=== PATIENT | male | born 1945 | race Caucasian/White ===

== ENCOUNTER → 2017-09-02 10:55 | Outpatient (CLI) | payer MEDICARE, OTHER ==
[2014-11-19 12:00] VITALS: BMI 28.0
[~2017-09-02 10:55] MED LIST: ACETAMINOPHEN500 M1 PO; DIOVAN HCT 160/1 TA1 PO; FOLATE0.4 MG; IMURAN50 MG PO; IPRAT-ALBUT 0.5-3 ML UPD; KLONOPIN1 MG PO; LEVAQUIN500 MG PO; LIDOCAINE-PRILOC5 GM TP; LOW DOSE ASPIRI81 M1 PO; LYRICA100 MG PO; PAMELOR10 MG PO; PLAVIX75 MG PO; PREDNISONE10 MG PO; PROSCAR5 MG PO; ROBAXIN500 MG PO; SAW PALMETTO450 MG PO; TOPROL XL100 MG PO; ULTRAM50 MG PO; VITAMIN B-122500 MCG PO; VITAMIN D5000 UNIT PO; ZANTAC150 MG PO; ZYRTEC10 MG PO
== END | disposition home or self-care (01) ==
LOC: D.CT 10:55
DX: I71.4 Abdominal aortic aneurysm, without rupture (principal)

== ENCOUNTER 2017-09-17 17:37 | Inpatient (IN) | payer MEDICARE, OTHER ==
[~2017-09-17] VITALS: Ht 193 cm; Wt 109.7 kg
[2017-09-17 18:27] LABS: BASOPHILS 0.1 % (0-2); EOSINOPHILS 0.1 % (0-7); HEMATOCRIT 44.8 % (42.0-54.0); HEMOGLOBIN 15.2 g/dL (13.5-17.5); IMMATURE GRANULOCYTES 0.6 % (0-5); LYMPHOCYTES 7.9 % (15-50); MCH 32.1 pg (26.0-34.0); MCHC 33.9 g/dL (31.0-37.0); MCV 94.7 fL (80.0-100.0); MEAN PLATELET VOLUME 11.1 fL (7.4-10.4); MONOCYTES 4.3 % (2-11); RBC 4.73 10x6/uL (4.20-6.10); RDW 14.8 % (11.5-14.5); WBC 8.1 10x3/uL (4.8-10.8)
[2017-09-17 18:29] LABS: PLATELET COUNT 124 10x3/uL (130-400)
[2017-09-17 18:57] LABS: ALBUMIN 3.6 g/dL (3.4-5.0); ALKALINE PHOSPHATASE 47 U/L (46-116); ALT (SGPT) 25 U/L (10-68); CALCIUM 9.8 mg/dL (8.5-10.1); CARBON DIOXIDE 24.8 mmol/L (21.0-32.0); CHOL - HDL RATIO 5.6 ratio (2.3-4.9); CHOLESTEROL, TOTAL 306 mg/dL (0-200); CKMB 2.3 U/L (0.0-3.6); CREATINE KINASE 162 UL (21-232); CREATININE - SERUM 1.5 mg/dL (0.6-1.3); GLUCOSE 139 mg/dL (74-106); HDL CHOLESTEROL 55 mg/dL (32-96); LDL CHOLESTEROL 225 mg/dL (0-100); LDL-HDL RATIO 4.1 ratio (1.5-3.5); PROTEIN - SERUM 7.7 g/dL (6.4-8.2); TRIGLYCERIDE 131 mg/dL (30-200); UREA NITROGEN 27 mg/dL (7-18); eGFR NON AFRICAN AMERICAN 49 mL/min (90-120)
[2017-09-17 19:23] LABS: CALC OSMOLALITY 280 mosm/kg (275-300); CHLORIDE - SERUM 102 mmol/L (98-107); SODIUM 137 mmol/L (136-145); TROPONIN-I < 0.017 ng/mL (0.000-0.060)
[2017-09-17 19:24] LABS: POTASSIUM - SERUM 5.2 mmol/L (3.5-5.1)
[2017-09-17 21:20] LABS: CKMB 2.3 U/L (0.0-3.6); CREATINE KINASE 99 UL (21-232)
[2017-09-17 21:22] LABS: TROPONIN-I < 0.017 ng/mL (0.000-0.060)
[2017-09-18 01:31] VITALS: BP 153/87; BMI 28.6
[2017-09-18 02:31] LABS: BASOPHILS 0.1 % (0-2); EOSINOPHILS 0.1 % (0-7); HEMATOCRIT 44.6 % (42.0-54.0); HEMOGLOBIN 15.1 g/dL (13.5-17.5); IMMATURE GRANULOCYTES 0.6 % (0-5); MCHC 33.9 g/dL (31.0-37.0); MCV 94.5 fL (80.0-100.0); MEAN PLATELET VOLUME 10.7 fL (7.4-10.4); MONOCYTES 4.9 % (2-11); NEUTROPHILS 82.3 % (40-80); RBC 4.72 10x6/uL (4.20-6.10); RDW 14.8 % (11.5-14.5); WBC 7.9 10x3/uL (4.8-10.8)
[2017-09-18 02:32] LABS: PLATELET COUNT 93 10x3/uL (130-400)
[2017-09-18 02:53] LABS: CALC OSMOLALITY 284 mosm/kg (275-300); CALCIUM 9.5 mg/dL (8.5-10.1); CARBON DIOXIDE 29.2 mmol/L (21.0-32.0); CHLORIDE - SERUM 102 mmol/L (98-107); CKMB 2.2 U/L (0.0-3.6); CREATINE KINASE 80 UL (21-232); CREATININE - SERUM 1.5 mg/dL (0.6-1.3); GLUCOSE 178 mg/dL (74-106); SODIUM 138 mmol/L (136-145); TROPONIN-I < 0.017 ng/mL (0.000-0.060); UREA NITROGEN 26 mg/dL (7-18); eGFR NON AFRICAN AMERICAN 49 mL/min (90-120)
[2017-09-18 02:54] LABS: POTASSIUM - SERUM 3.8 mmol/L (3.5-5.1)
[2017-09-18 09:16] VITALS: BP 142/102
[2017-09-18 09:29] LABS: CKMB 3.2 U/L (0.0-3.6); CREATINE KINASE 67 UL (21-232); TROPONIN-I 0.021 ng/mL (0.000-0.060)
[2017-09-18 10:59] VITALS: Ht 193 cm; Wt 109.7 kg
[2017-09-18 12:54] VITALS: BP 136/85
[2017-09-18 17:05] VITALS: BP 127/84
[2017-09-19 04:00] VITALS: BP 110/77
[2017-09-19 09:44] VITALS: BP 149/86
[2017-09-19 12:32] LABS: ANION GAP 18.1 mmol/L (8-16); CALCIUM 9.9 mg/dL (8.5-10.1); CARBON DIOXIDE 25.8 mmol/L (21.0-32.0); CREATININE - SERUM 1.5 mg/dL (0.6-1.3)
[2017-09-19 12:34] LABS: POTASSIUM - SERUM 4.9 mmol/L (3.5-5.1)
[2017-09-19 13:07] VITALS: BP 120/68
[2017-09-19 16:20] VITALS: BP 123/71
[2017-09-19 20:00] VITALS: BP 130/79
[2017-09-20] VITALS: BP 125/88
[2017-09-20 04:00] VITALS: BP 122/81
[2017-09-20 07:52] VITALS: BP 117/82
== END 2017-09-20 11:00 | disposition home or self-care (01) | DRG 566 ==
LOC: D.ER 17:37 → D.M2 20:41 → D.EDHOLD 20:41 → OBSVTIME 20:42 → D.M2 22:01
PROVIDERS: Family Medicine; Internal Medicine Cardiovascular Disease
DX: M94.8X8 Other specified disorders of cartilage, other site (principal); J04.10 Acute tracheitis without obstruction; I10 Essential (primary) hypertension; Z87.891 Personal history of nicotine dependence; I25.10 Atherosclerotic heart disease of native coronary artery without angina pectoris; Z95.5 Presence of coronary angioplasty implant and graft; Z95.1 Presence of aortocoronary bypass graft; Z95.0 Presence of cardiac pacemaker; K21.9 Gastro-esophageal reflux disease without esophagitis; I25.5 Ischemic cardiomyopathy

== ENCOUNTER 2019-10-30 14:35 | Observation (INO) | payer MEDICARE, OTHER ==
[~2019-10-30] VITALS: Ht 193 cm; Wt 91.0 kg
--- NOTE | ~2019-10-30 | HEMODYNAMI ---
PATIENT:RIP SANDERS MEDICAL RECORD: [id number] : [birth year] LOCATION:[address]# [id number] ADMISSION DATE: 10/30/19 Generatedon:10/31/201913:43 Patient name: RIP SANDERS Patient #: [id number] SSN: [id number] : 1945 Date of study: 10/31/2019 Page: Of Hemodynamic Procedure Report Patient Data Patient Demographics Procedure consent was obtained First Name: RIP Gender: Male Last Name: TOMMY : 1945 [facility] Initial: KEKE Age: 74 year(s) Patient #: [id number] Race: Unknown SSN: [id number] Additional ID: [id number] Contact details Address: [address] State: [place] City: [place] Zip code: [address] Past Medical History History of disease Date Diagnosis Comments CAD Allergies Allergen Reaction Date Comments Reported Other allergy 10/31/2019 PCN, KEFLEX, CELEBREX Penicillins 10/31/2019 Admission Admission Data Admission Date: 10/30/2019 Admission Time: 15:23 Arrival Date: 10/31/2019 Arrival Time: 0:00 Room #: [facility] Insurance Payor: Medicare [facility] #: [id number] Height (in.): 75.98 BSA: 2.22 (m2) Height (cm.): 193 BMI: 24.43 (kg/m2) Weight (lbs.): 200.62 Weight (kg.): 91 Lab Results Lab Result Date: 10/31/2019 Lab Result Time: 0:00 Biochemistry Name Units Result Min Max BUN mg/dl 24 --(----)-* 7 18 Creatinine mg/dl 1.5 --(----)-* 0.6 1.3 eGFR ml/min 49 *-(----)-- 90 120 NONAFRICAN CBC Name Units Result Min Max Hematocrit % 48.8 --(--*-)-- 42 54 Hemoglobin g/dl 16.3 --(--*-)-- 13.5 17.5 Procedure Procedure Types Cath Procedure Diagnostic Procedure LHC LHC w/Coronaries w/Grafts Sedation Charges Moderate Sedation up to 45 minutes Procedure Description Procedure Date Procedure Date: 10/31/2019 Procedure Start Time: 11:37 Procedure End Time: 13:41 Procedure Staff Name Function Hilario Lozano MD Performing Physician Helene Gooden RT Monitor Tiffanie Juarez RN Nurse Maureen Spain RT Scrub Lauraperico Callahan RT Water Resource Consultant Procedure Data Cath Procedure Fluoroscopy Diagnostic fluoroscopy Total fluoroscopy Time: 6 time: 6 min min Diagnostic fluoroscopy Total fluoroscopy dose: 669 dose: 669 mGy mGy Contrast Material Contrast Material Type Amount (ml) Isovue 300 68 Entry Location Entry Primary Successful Side Size Upsize Upsize Entry Closure Succes sful Closure Location (Fr) 1 (Fr) 2 (Fr) Remarks Device Remarks Femoral Right 5 Fr Sheath artery sutured in place Estimated blood loss: 10 ml Diagnostic catheters Device Type Used For End Catheter Placement MULTIPACK JL 4.0 5Fr Procedure catheter DIAGNOSTIC AR MOD 5Fr Procedure Catheter ([id number]) MULTIPACK Pigtail 5 Fr Procedure catheter DIAGNOSTIC IM 5Fr Procedure catheter ([id number]) Procedure Complications No complications Procedure Medications Medication Administration Route Dosage 0.9% NaCl I.V. 100 ml/hr Oxygen etCO2 Nasal cannula 2 l/min Lidocaine 2% added to field 20 Heparin Flush Bag added to field 2 bags (1000units/500ml NS) Phenergan I.V. 25 mg Versed I.V. 2 mg Fentanyl I.V. 50 mcg Versed I.V. 2 mg Fentanyl I.V. 50 mcg Hemodynamics Rest BSA: 2.22 (m2) HGB: 16.3 (g/dl) O2 Consumption: Estimated: 281.8 (ml/min) O2 Con sumption indexed: Estimated:126.94 (ml/min/m) Heart Rate: 100 (bpm) Snapshots Pre Cath Intra NCS Post Cath Vital Signs Time Heart Resp SPO2 etCO2 NIBP (mmHg) Rhythm Pain Sedation Rate (ipm) (%) (mmHg) Status Level (bpm) 11:25:25 100 13 94 25.4 126/96(105) NSR 0 (11) 10(A) , No pain 11:29:43 101 14 92 8.2 121/100(107) NSR 0 (11) 10(A) , No pain 11:33:59 99 18 90 34.4 123/93(100) NSR 0 (11) 10(A) , No pain 11:38:13 97 7 88 41.9 121/97(113) NSR 0 (11) 10(A) , No pain 11:42:27 103 7 91 41.9 114/92(104) NSR 0 (11) 10(A) , No pain 11:46:42 102 6 92 40.4 120/86(105) NSR 0 (11) 10(A) , No pain 11:50:53 101 7 93 39.6 118/95(108) NSR 0 (11) 10(A) , No pain 11:55:05 103 11 95 38.1 123/98(102) NSR 0 (11) 10(A) , No pain 11:59:17 102 7 93 39.6 126/92(113) NSR 0 (11) 10(A) , No pain 12:03:31 101 7 91 40.4 117/95(109) NSR 0 (11) 10(A) , No pain 12:07:41 103 14 96 32.1 126/99(108) NSR 0 (11) 10(A) , No pain 12:11:57 108 9 92 29.1 119/97(103) NSR 0 (11) 10(A) , No pain 12:16:07 104 10 94 35.9 124/105(116) NSR 0 (11) 10(A) , No pain 12:20:19 105 11 94 36.6 121/104(113) NSR 0 (11) 10(A) , No pain 12:24:31 104 10 94 33.6 126/103(121) NSR 0 (11) 10(A) , No pain 12:28:45 103 8 95 30.6 129/105(112) NSR 0 (11) 10(A) , No pain 12:33:03 103 9 93 36.6 132/88(110) NSR 0 (11) 10(A) , No pain 12:37:19 102 9 96 35.1 128/102(110) NSR 0 (11) 10(A) , No pain 12:41:31 102 11 93 32.1 124/97(108) NSR 0 (11) 10(A) , No pain 12:45:43 102 9 96 38.1 125/98(111) NSR 0 (11) 10(A) , No pain 12:49:59 103 20 89 32.9 118/90(103) NSR 0 (11) 10(A) , No pain 12:54:07 109 25 94 28.4 134/107(124) NSR 0 (11) 10(A) , No pain 12:58:23 102 25 94 24.6 129/104(115) NSR 0 (11) 10(A) , No pain 13:02:35 101 8 96 33.6 131/106(115) NSR 0 (11) 10(A) , No pain 13:06:49 100 12 94 31.4 127/99(113) NSR 0 (11) 10(A) , No pain 13:10:59 101 10 95 34.4 132/104(111) NSR 0 (11) 10(A) , No pain 13:15:13 97 10 96 34.4 122/102(115) NSR 0 (11) 10(A) , No pain 13:19:22 101 13 96 32.2 128/99(114) NSR 0 (11) 10(A) , No pain 13:23:35 100 10 96 36.6 125/103(115) NSR 0 (11) 10(A) , No pain 13:27:44 101 10 95 35.9 131/100(114) NSR 0 (11) 10(A) , No pain 13:31:58 100 17 23.9 131/94(120) NSR 0 (11) 10(A) , No pain 13:36:18 98 20 92 35.1 135/102(122) NSR 0 (11) 10(A) , No pain 13:40:32 102 30 96 30.6 137/109(121) NSR 0 (11) 10(A) , No pain Medications Time Medication Route Dose Verified Delivered Reason Notes Eff ectiveness by by 11:31:11 0.9% NaCl I.V. 100 Hilario Tiffanie used for ml/hr Blake Juarez matrix plater 11:31:17 Oxygen etCO2 2 Hilario Tiffanie used for Nasal l/min Blake Juarez procedure cannula RN 11:31:22 Lidocaine 2% added 20ml Hilario Hilario for local to vial Blake Lozano MD anesthetic field 11:31:27 Heparin Flush added 2 Hilario Hilario used for Bag to bags Blake Lozano MD procedure (1000units/500ml field NS) 11:31:42 Phenergan I.V. 25 mg Hilario Tiffanie for nausea Blake Juarez RN 11:34:59 Versed I.V. 2 mg Hilario Tiffanie for Blake Juarez sedation RN 11:35:09 Fentanyl I.V. 50 Hilario Tiffanie for mcg Blake Juarez sedation RN 11:42:23 Versed I.V. 2 mg Hilario Tiffanie for Blake Juarez sedation RN 11:42:37 Fentanyl I.V. 50 Hilario Tiffanie for mcg Blake Juarez sedation shearing shed hand Log Time Note 11:06:44 Arrival Date: 10/31/2019 12:00:00 AM 11:07:00 Insurance Payor : Medicare 11:07:18 Patient Height : 75.98 inches 11:07:22 Patient Weight : 200.62 lbs 11:07:44 Diagnostic Cath Status : Urgent 11:08:14 Procedure Status Urgent Heart Cath (IP). 11:08:20 Time tracking: Call back (After hours or weekends) 11:08:26 Plan of Care:Hemodynamics will remain stable., Cardiac rhythm will remain stable., Comfort level will be maintained., Respiratory function will remain adequate., Patient/ family verbilizes understanding of procedure., Procedure tolerated without complication., Recovers from procedure without complications.. 11:08:40 Patient received from Med II to CCL 1 Alert and oriented. Tansferred to table in Supine position. 11:08:43 Signed procedure consent form obtained from patient. 11:09:19 H&P Date Dictated: 10/30/2019 Within 30 days and on chart.. 11:09:21 Pre-procedure instructions explained to patient. 11:09:24 Family in patients room. 11:09:27 Patient NPO since Midnight. 11:12:12 Laura Callahan RT(R) sent for patient. Start room use. 11:24:03 Warm blankets applied, and nelida hugger turned on for patient comfort. 11:24:03 Correct patient and procedure confirmed by team. 11:24:03 ECG and BP/O2 sat monitors applied to patient. 11:24:08 Vital chart was started 11:25:23 Baseline sample Acquired. 11:26:48 Patient allergic to Penicillins 11:26:50 Is patient on blood thinner?Yes 11:26:52 ACC The patient was administered the following blood thiners within the last 24 hours: ACCPlavix 11:26:53 Patient diabetic? No. 11:26:56 Previous problem with sedation/anesthesia? No ? 11:26:57 Snore? Yes 11:26:57 Sleep apnea? Yes 11:26:59 Deviated septum? No 11:27:00 Opens mouth fully? Yes 11:27:00 Sticks out tongue? Yes 11:27:02 Airway obstruction? No ? 11:27:03 Dentures? No ? 11:27:05 Pre procedure: right dorsailis pedis pulse 1+ Palpable, but thready & weak; easily obliterated 11:27:15 IV patent on arrival in right hand with 0.9% NaCl at [facility]. 11:28:00 Lab results completed and on chart. 11:28:06 Stress Test: no; abnormal NSTEMI 11:28:11 Right groin area was prepped with chlora-prep and draped in sterile fashion 11:28:11 Alarms reviewed by R. N. 11:28:12 Sharps counted by scrub and verified by R.N. 11:28:29 Use device set Femoral Dx 11:28:30 ACIST Syringe (18649) opened to sterile field. 11:28:31 Bag Decanter (2002) opened to sterile field. 11:28:32 ACIST Hand Control (73328) opened to sterile field. 11:28:32 ACIST Manifold (31067) opened to sterile field. 11:28:33 Tegaderm 4 x 4 (1626W) opened to sterile field. 11:28:57 Medline Cath Pack ([id number]) opened to sterile field. 11:28:58 SHEATH 5FR [place] (DWV352) opened to sterile field. 11:28:58 DIAGNOSTIC Multipack 5Fr catheter set (YL6364) opened to sterile field. 11:28:59 EMERALD Guide Wire (374-472) opened to sterile field. 11:30:51 Baseline sample Acquired. 11:30:54 Rhythm: sinus rhythm 11:30:56 Full Disclosure recording started 11::04 --------ALL STOP TIME OUT------ 11:31:04 Final Timeout: patient, procedure, and site verified with staff and physician. All members of the team are in agreement. 11:31:06 Right groin site verified by team. 11:31:08 Fire Safety Assessment: A--An alcohol-based skin anteseptic being used preoperatively., C--Open oxygen or nitrous oxide is being used., D--An ESU, laser, or fiber-optic light is being used. 11:31:11 0.9% NaCl 100 ml/hr I.V. was administered by Tiffanie Juarez RN; used for procedure; Verbal order read back and verified. 11:31:12 Physical assessment completed. ASA score P 2 - A patient with mild systemic disease as per Hilario Lozano MD. 11:31:15 3a) 45-59 Moderately reduced kidney function. 11:31:17 Oxygen 2 l/min etCO2 Nasal cannula was administered by Tiffanie Juarez RN; used for procedure; Verbal order read back and verified. 11:31:18 Maximum allowable contrast dose (3.7 X eGFR X 0.75)136 ml. 11:31:22 Lidocaine 2% 20ml vial added to field was administered by Hilario Lozano MD; for local anesthetic; Verbal order read back and verified. 11:31:22 Sedation plan: IV Moderate Sedation Medication:Versed, Fentanyl 11:31:27 Heparin Flush Bag (1000units/500ml NS) 2 bags added to field was administered by Hilario Lozano MD; used for procedure; Verbal order read back and verified. 11:31:42 Phenergan 25 mg I.V. was administered by Tiffanie Juarez RN; for nausea; Verbal order read back and verified. 11:32:51 Zero performed for pressure channel P1 11:33:16 Procedure type changed to Cath procedure, Diagnostic procedure, LHC, LHC w/Coronaries w/Grafts, Sedation Charges, Moderate Sedation up to 45 minutes 11:34:56 Pt arrives to w/ 4LNC at 94% SpO2. Pt placed on 6L via simple mask. SpO2 92%. aware of VS. 11:34:59 Versed 2 mg I.V. was administered by Tiffanie Juarez RN; for sedation; Verbal order read back and verified. 11:35:09 Fentanyl 50 mcg I.V. was administered by Tiffanie Juarez RN; for sedation; Verbal order read back and verified. 11:36:48 Procedure started. 11:37:24 Local anesthetic to right femoral artery with Lidocaine 2% by Hilario Lozano MD.INITIAL ACCESS ONLY 11:38:56 A 5 Fr sheath was inserted into the Right Femoral artery 11:39:49 A MULTIPACK JL 4.0 5Fr catheter was advanced over the wire and used for Procedure. 11:41:27 LCA angiography performed. 11:41:29 Catheter exchanged over wire. 11:42:17 A DIAGNOSTIC AR MOD 5Fr Catheter ([id number]) was advanced over the wire and used for Procedure. 11:42:23 Versed 2 mg I.V. was administered by Tiffanie Juarez RN; for sedation; Verbal order read back and verified. 11:42:37 Fentanyl 50 mcg I.V. was administered by Tiffanie Juarez RN; for sedation; Verbal order read back and verified. 11:44:47 RCA angiography performed. 11:45:12 SVG to Circ occluded. 11:45:42 SVG to RCA occluded. 11:45:59 Catheter exchanged over wire. 11:46:19 A MULTIPACK Pigtail 5 Fr catheter was advanced over the wire and used for Procedure. 11:49:01 Aortic Root visualized 11:51:31 Catheter exchanged over wire. 12:07:01 A DIAGNOSTIC IM 5Fr catheter ([id number]) was advanced over the wire and used for Procedure. 12:10:28 IRWIN to LAD angiography performed. 12:10:45 Catheter removed. 12:12:14 TUBING High Pressure Extension (IABP) opened to sterile field. 12:13:26 Sheath removed intact; hemostasis achieved with Sheath sutured in place to the Right Femoral artery. 12:13:30 Procedure ended.(Physican Out) 12:13:40 Fluoroscopy time 06.00 minutes. 12:13:45 Fluoroscopy dose: 669 mGy 12:13:45 Flurop Dose total: 669 12:13:54 Dose Area Product 63013 mGy/cm. 12:14:07 Contrast amount:Isovue 300 68ml. 12:14:09 Maximum allowable dose exceeded? No. 12:14:11 Sharps counted by scrub and verified by R.N. 12:14:18 Insertion/operative site no bleeding no hematoma. 12:14:28 Post-op/insertion site Right Femoral artery dressed using a 4 x 4 and Tegaderm. 12:14:52 Post-procedure physical assessment completed. ASA score P 4 - A patient with severe systemic disease that is a constant threat to life as per Hilario Lozano MD. 12:14:58 Post procedure rhythm: unchanged. 12:15:01 Estimated blood loss: 10 ml 12:15:03 Post procedure instruction explained to patient.Patient verbalizes understanding. 12:16:11 Procedure and supply charges have been captured, reviewed, submitted and are correct. 12:16:38 Procedure Complication : No complications 12:17:23 [facility] Findings: MVD- MD will discuss options w/ pt 12:17:28 See physician's report for complete and final results. 12:17:32 Report given to Med II. 12:18:43 PATIENT TRANSFERED TO [facility] [place] [facility] 13:41:20 Vital chart was stopped 13:41:22 Procedure ended. 13:41:22 Full Disclosure recording stopped 13:41:26 End room use (Document Last) 13:41:26 End room use (Document Last) 13:41:43 SURVIVAL FLIGHT HERE AND TAKING PATIENT TO [facility] Device Usage Item Name Manufacture Quantity Catalog Number Hospital Part Current Minim al Lot# / Charge Number Stock Stock Serial# Code ACIST Acist 1 64282 674420 259072 [id number] 20 Syringe Medical (28121) Systems Inc Bag Microtek 1 2001S 131718 54816 375708 5 Decanter Medical Inc. () ACIST Hand Acist 1 54099 431257 800630 280234 5 Control Medical (66535) Systems Inc ACIST Acist 1 23600 455513 962975 322961 5 Manifold Medical (25700) Systems Inc Tegaderm 4 3M 1 1626W 927649 837366 267301 5 x 4 (1626W) Medline Medline 1 [id number] 547278 81185 947454 5 Cath Pack ([id number]) DIAGNOSTIC Cardinal 1 HL2714 167892 74412 608829 30 Multipack Health 5Fr catheter set (ML1011) EMERALD Cardinal 1 502-455 257578 959326 564315 5 Guide Wire Health (502-455) MULTIPACK Cardinal 1 140546 5 JL 4.0 5Fr Health catheter DIAGNOSTIC Cardinal 1 163295H 069612 218565 561313 15 AR MOD 5Fr Health Catheter (267127J) SHEATH 5FR Terumo 1 [id number] 495495 626383 661168 5 [place] (EQL448) MULTIPACK Cardinal 1 620564 5 Pigtail 5 Health Fr catheter DIAGNOSTIC Cardinal 1 [id number] 859110 617416 777561 5 IM 5Fr Health catheter (612786H) TUBING High Merit 1 [id number] 193706 456526 196731 5 Pressure Medical Extension (IABP) Signature Audit [place] Stage Time Signature Unsigned Intra-Procedure 10/31/2019 Laura Callahan 1:41:51 PM RT(R) Intra-Procedure 10/31/2019 Tiffanie Juarez 1:42:18 PM RN Intra-Procedure 10/31/2019 Hilario Lozano MD 1:43:15 PM [facility] [address] [place] [address]
[2019-10-30 14:53] VITALS: BP 121/78
[2019-10-30 14:59] LABS: BASOPHILS 0.4 % (0-2); EOSINOPHILS 2.1 % (0-7); HEMATOCRIT 44.4 % (42.0-54.0); IMMATURE GRANULOCYTES 0.2 % (0-5); LYMPHOCYTES 31.8 % (15-50); MCH 31.6 pg (26.0-34.0); MCHC 33.8 g/dL (31.0-37.0); MCV 93.5 fL (80.0-100.0); MONOCYTES 10.2 % (2-11); NEUTROPHILS 55.3 % (40-80); RBC 4.75 10x6/uL (4.20-6.10); RDW 13.6 % (11.5-14.5); WBC 8.5 10x3/uL (4.8-10.8)
[2019-10-30 15:03] LABS: PLATELET COUNT 124 10x3/uL (130-400)
[2019-10-30 15:10] LABS: APTT 28.8 SECONDS (22.8-39.4); CALC OSMOLALITY 278 mosm/kg (275-300); CALCIUM 9.8 mg/dL (8.5-10.1); CHLORIDE - SERUM 101 mmol/L (98-107); CREATININE - SERUM 1.3 mg/dL (0.6-1.3); GLUCOSE 112 mg/dL (74-106); INR 1.04 (0.85-1.17); POTASSIUM - SERUM 3.6 mmol/L (3.5-5.1); PROTIME 13.5 SECONDS (11.6-15.0); SODIUM 138 mmol/L (136-145); UREA NITROGEN 18 mg/dL (7-18); eGFR NON AFRICAN AMERICAN 58 mL/min (90-120)
--- NOTE | 2019-10-30 15:19 | NUR ---
PATIENT STATES HIS PAIN IS NOT BEING CONTROLLED, WHEN I GAVE THE 4MG OF MORPHINE HE SAID THAT WAS NOT ENOUGH.
[2019-10-30 15:26] LABS: ALBUMIN 3.7 g/dL (3.4-5.0); ALKALINE PHOSPHATASE 56 U/L (30-120); ALT (SGPT) 21 U/L (10-68); BILIRUBIN - TOTAL 0.66 mg/dL (0.2-1.3); CREATINE KINASE 68 UL (21-232); MAGNESIUM - SERUM 1.9 mg/dL (1.8-2.4); TROPONIN-I 0.027 ng/mL (0.000-0.060)
[2019-10-30 15:58] VITALS: BP 124/82
--- NOTE | 2019-10-30 15:59 | NUR ---
STATES HE HAS CHEST PAIN, 02/03 DOCTOR NOTIFIED OF THE PAIN LEVEL.
--- NOTE | 2019-10-30 17:00 | NUR ---
NW PATIENT ADMIT FROM ER VIA WC ACCOMPANIED BY ER STAFF. PATIENT TRANSFERRED TO HOSPITAL BED EASILY.PATIENT IS COMPLAINING OF CHEST PAIN AT A 10 AND WRITHING IN PAIN. BP 132/76 HR 64 RESP 20 O2 98% RA. PER JUL ORDER PLACED PATIENT ON MORPHINE SEWER PIPE OFFBEARER PUMP PER JUL ORDER. PER JUL ORDER GAVE PATIENT 2 MG BOLUS WITH 1 MG Q 10 MINUTES WITH 4 HOUR LOCKOUT. EKG COMPLETED SHOWING PACED AT 65. ASSESSMENT COMPLETED.SUPPER TRAY ORDERED. WILL CONTINUE TO MONITOR. SR UP X 2 BED IN LOW POSITION AND CALL LIGHT IN REACH.
[2019-10-30 17:33] VITALS: BP 114/76; BMI 24.4
--- NOTE | 2019-10-30 18:03 | NUR ---
PATIENT COMPLAINS OF PAIN AT A 10. PATIENT STATES MORPHINE NOT HELPING AND REQUEST FENTANYL. CALLED DR GUERRA. NEW ORDER RECEIVED FRO DILAUDED 2MG IV PUSH. GAVE PATIENT DILAUDED 2 MG IV SLOW PUSH. PATIENT TOLERATED WELL. WILL CONTINUE TO MONITOR SR UP X 2 BED IN LOW POSITION AND CALL LIGHT IN REACH.
--- NOTE | 2019-10-30 18:43 | NUR ---
PATIENT STATES THAT HE FEELS MUCH BETTER THAT HIS PAIN LEVEL IS A 10. WILL CONTINUE TO MONITOR. FRIEND AT BS.
--- NOTE | 2019-10-30 19:30 | NUR ---
CHANGE OF LOC, V-TACH PER PROFESSIONAL ENGINEER. RAPID REPSONSE CALLED.
--- NOTE | 2019-10-30 20:30 | NUR ---
DR. GUERRA AT BEDSIDE. PIC TO LEFT AC OUT, CATHETER TIP INTACT. YADIRA LIGHT IN REACH. WILL CTM.
[2019-10-30 21:12] VITALS: BP 120/92
[2019-10-30 21:19] LABS: CALCIUM 9.9 mg/dL (8.5-10.1); CKMB 113.7 U/L (0.0-3.6)
[2019-10-30 21:20] LABS: CREATINE KINASE 714 UL (21-232)
[2019-10-30 21:25] LABS: TROPONIN-I 13.467 ng/mL (0.000-0.060)
--- NOTE | 2019-10-30 21:40 | NUR ---
PAGED TO REPORT ELEVATED TROPONIN. NO NEW ORDERS NOTED. WILL CTM.
[2019-10-31 00:09] VITALS: BP 104/78
--- NOTE | 2019-10-31 00:20 | NUR ---
PT C/O OF N/V. DARK EMESIS NOTED.
--- NOTE | 2019-10-31 00:40 | NUR ---
TREE PELAYO SUPERVISOR TREE TRIMMING R/T PTS CHEST DISCOMFORT. PT WRITHING IN BED C/O MORPHINE IS NOT HELPING AND RELATES THE N/V TO THE MORPHINE. PT REFUSED NIRTRO FOR CHEST PAIN EARLIER. RECEIVED NEW ORDER FOR HYDROMORPHONE 1MG Q4-6 HOURS PRN. RECEIVED NEW ORDER TO D/C [place] DETECTIVE. CALL LIGHT IN REACH. WILL CTM.
--- NOTE | 2019-10-31 01:20 | NUR ---
PT HAD A 28 BEAT RUN OF V-TACH, PT WAS SLEEPING AND IS ASYMPTOMATIC AT THE TIME. WILL CTM.
--- NOTE | 2019-10-31 02:06 | NUR ---
PT HAS BEEN CHECKED ON TWICE FOR 2 RUNS OF BEATS OF VTACH. BOTH TIMES HE HAD TO AROUSED FROM SLEEP. DENIES PAIN OR EVEN THE FEELING THAT HE WAS HAVING VTACH. HE RECIEVED DILAUDID EARLIER AND STATES THIS HAS MADE HIM COMFORTABLE. WILL MONITOR . CPOC.
[2019-10-31 02:42] LABS: BASOPHILS 0.1 % (0-2); EOSINOPHILS 0.1 % (0-7); HEMATOCRIT 48.8 % (42.0-54.0); HEMOGLOBIN 16.3 g/dL (13.5-17.5); IMMATURE GRANULOCYTES 0.3 % (0-5); LYMPHOCYTES 7.5 % (15-50); MCH 31.8 pg (26.0-34.0); MCHC 33.4 g/dL (31.0-37.0); MCV 95.3 fL (80.0-100.0); MEAN PLATELET VOLUME 11.2 fL (7.4-10.4); MONOCYTES 7.5 % (2-11); NEUTROPHILS 84.5 % (40-80); PLATELET COUNT 131 10x3/uL (130-400); RBC 5.12 10x6/uL (4.20-6.10); RDW 13.7 % (11.5-14.5)
[2019-10-31 02:44] LABS: WBC 14.5 10x3/uL (4.8-10.8)
[2019-10-31 03:42] LABS: ALBUMIN 3.2 g/dL (3.4-5.0); ALKALINE PHOSPHATASE 60 U/L (30-120); BILIRUBIN - TOTAL 0.76 mg/dL (0.2-1.3); CALCIUM 9.1 mg/dL (8.5-10.1); CARBON DIOXIDE 25.6 mmol/L (21.0-32.0); CHLORIDE - SERUM 104 mmol/L (98-107); CREATININE - SERUM 1.5 mg/dL (0.6-1.3); GLUCOSE 186 mg/dL (74-106); POTASSIUM - SERUM 3.8 mmol/L (3.5-5.1); PROTEIN - SERUM 6.7 g/dL (6.4-8.2); SODIUM 140 mmol/L (136-145); eGFR NON AFRICAN AMERICAN 49 mL/min (90-120)
[2019-10-31 03:43] LABS: ALT (SGPT) 35 U/L (10-68); CALC OSMOLALITY 287 mosm/kg (275-300); CKMB 377.8 U/L (0.0-3.6); CREATINE KINASE 2011 UL (21-232); UREA NITROGEN 24 mg/dL (7-18)
[2019-10-31 03:44] LABS: TROPONIN-I 59.855 ng/mL (0.000-0.060)
--- NOTE | 2019-10-31 04:10 | NUR ---
PAGED DR. GUERRA REGARDING INCREASED CARDIAC ENZYMES. NEW ORDERS NOTED.
[2019-10-31 04:20] LABS: INR 1.03 (0.85-1.17); PROTIME 13.4 SECONDS (11.6-15.0)
[2019-10-31 05:07] VITALS: BP 118/80
--- NOTE | 2019-10-31 07:15 | NUR ---
RECEIVED PT IN BED AAOX4 RESP UNLABORED SKIN W/D PT REQUESTS ASSISTANCE TO BATHROOM AND BACK TO BED TOLERATED FAIR SOME SOB NOTED
--- NOTE | 2019-10-31 08:10 | NUR ---
DILAUDID 1 MG GIVEN SIVP FOR C/O PAIN TO CHEST AND RADIATING DOWN LT ARM 03/05
[2019-10-31 08:29] VITALS: Ht 193 cm; Wt 91.0 kg
[2019-10-31 09:44] VITALS: BP 111/85
[2019-10-31 10:11] LABS: CKMB 530.2 U/L (0.0-3.6); CREATINE KINASE 3518 UL (21-232)
[2019-10-31 10:13] LABS: TROPONIN-I 90.239 ng/mL (0.000-0.060)
[2019-10-31 10:33] LABS: ANION GAP 15.3 mmol/L (8-16); CALCIUM 9.5 mg/dL (8.5-10.1); CARBON DIOXIDE 26.7 mmol/L (21.0-32.0); CHOL - HDL RATIO 6.3 ratio (2.3-4.9); CREATININE - SERUM 1.7 mg/dL (0.6-1.3)
--- NOTE | 2019-10-31 11:30 | NUR ---
PT TO WALLPAPER INSPECTOR VIA BED
--- NOTE | 2019-10-31 13:00 | NUR ---
PT'S WALLET,KEYS,WATCH,CELL PHONE AND SED SPECIAL EDUCATION TEACHER TAKEN PER SOFTWARE QUALITY ASSURANCE ENGINEER TO LOAD TESTER TO BE TRANSFERED WITH PT. ROBERTO FROM LOAD TESTER STATED THE DAUGHTER HAD BEEN NOTIFIED TO ENVIRONMENTAL RESEARCH PROJECT MANAGER MEDICATION AND CLOTHING
--- NOTE | 2019-10-31 13:23 | NUR ---
PT'S DAUGHTER PONCHO PICKED UP PT'S PERSONAL BELONGINGS
--- NOTE | 2019-10-31 13:27 | MORECARE ---
CASE MANAGEMENT DISCHARGE SUMMARY PATIENT: RIP SANDERS UNIT: [id number] ADM DATE: 10/30/19 AGE: 74 : [birth year] SEX: M ROOM/BED: D.2123 AUTHOR: KRISTIE GROVES PHYSICIAN: REFERRING PHYSICIAN: ARABELLA ALCAZAR MD DATE OF SERVICE: 10/31/19 Discharge Plan Patient Name[facility] RIP SANDERS [facility] [facility] 1945 Planned Disposition: Critical Access [place] Anticipated Discharge Date: 10/31/19 Discharge Date: Expected LOS: 1 Initial Reviewer: [email or web address] Initial Review Date: 10/30/2019 Generated: 10/31/19 2:27 pm Patient Name: RIP SANDERS Page [phone] at 1327 All edits/amendments must be made on the electronic document DICTATION DATE: 10/31/[address] SUPERVISOR: JOSE 10/31/19 1327 RPT#: [id number] DC DATE: STATUS: ADM IN [facility] [address] [place] [address] END OF REPORT
--- NOTE | 2019-11-02 07:35 | MORECARE ---
CASE MANAGEMENT DISCHARGE SUMMARY PATIENT: RIP SANDERS UNIT: [id number] ADM DATE: 10/30/19 AGE: 74 : [birth year] SEX: M ROOM/BED: D.2123 AUTHOR: KRISTIE GROVES PHYSICIAN: REFERRING PHYSICIAN: ARABELLA ALCAZAR MD DATE OF SERVICE: 11/02/19 Discharge Plan Patient Name: RIP SANDERS [facility] [facility] 1945 Planned Disposition: Critical Access [place] Anticipated Discharge Date: 10/31/19 Discharge Date: 10/31/2019 Expected LOS: 1 Initial Reviewer: [email or web address] Initial Review Date: 10/30/2019 Generated: 11/02/19 8:34 am Last DP export: 10/31/19 12:27 pm Patient Name: RIP SANDERS Page [id number] at 0735 All edits/amendments must be made on the electronic document DICTATION DATE: 11/02/19 0734 MANAGER FLOAT: JOSE 11/02/19 0734 RPT#: [id number] DC DATE:10/31/19 STATUS: DIS IN [facility] [address] [place] [address] END OF REPORT
== END 2019-10-31 14:06 | disposition short-term general hospital (02) ==
LOC: D.ER 14:35 → OBSVTIME 15:23 → D.M2 15:23 → D.ER 16:06 → D.M2 10-31 14:06
PROVIDERS: Family Medicine; Internal Medicine Cardiovascular Disease; ADMIT Family Medicine; ATTEND Family Medicine
DX: I25.110 Atherosclerotic heart disease of native coronary artery with unstable angina pectoris (principal); I10 Essential (primary) hypertension; Z95.0 Presence of cardiac pacemaker; M94.8X9 Other specified disorders of cartilage, unspecified sites; G89.29 Other chronic pain; M54.9 Dorsalgia, unspecified; Z87.891 Personal history of nicotine dependence; I25.5 Ischemic cardiomyopathy; I47.2 Ventricular tachycardia; I21.4 Non-ST elevation (NSTEMI) myocardial infarction; I25.720 Atherosclerosis of autologous artery coronary artery bypass graft(s) with unstable angina pectoris; I25.710 Atherosclerosis of autologous vein coronary artery bypass graft(s) with unstable angina pectoris